=== PATIENT | female | born 1995 | race Two or more races ===

== ENCOUNTER 2020-12-30 11:50 | Emergency (ER) | payer SELFPAY ==
[~2020-12-30] VITALS: Ht 165.1 cm; Wt 63.5 kg
[2020-12-30 12:55] VITALS: BP 128/94
== END 2020-12-30 13:43 | disposition home or self-care (01) ==
LOC: EDBD 11:51 → ER 11:51
DX: H66.92 Otitis media, unspecified, left ear (principal)